=== PATIENT | female | born 1955 | race Caucasian/White ===

== ENCOUNTER → 2016-08-02 18:04 | Outpatient (CLI) | payer MEDICARE ==
[2012-09-23 13:57] VITALS: BMI 30.1
[~2016-08-02 18:04] MED LIST: ACIPHEX20 MG PO; AMBIEN10 MG PO; CARAFATE1 G/10 ML; LIBRAX CAPSULE1 CAP PO; MORPHINE SULFAT30 MG PO; PEPCID20 MG PO; VALIUM5 MG PO; VITAMIN D2000 UNIT PO
== END | disposition home or self-care (01) ==
LOC: D.MAMMO 11:30
DX: Z12.31 Encounter for screening mammogram for malignant neoplasm of breast (principal)

== ENCOUNTER 2016-11-05 06:43 | Day surgery (SDC) | payer MEDICARE ==
[2016-11-04 11:09] LABS: HEMATOCRIT 40.1 % (36.0-48.0); HEMOGLOBIN 13.2 g/dL (12-16); MCH 28.7 pg (26.0-34.0); MCHC 32.9 g/dL (31.0-37.0); MCV 87.2 fL (80.0-100.0); MEAN PLATELET VOLUME 10.6 fL (7.4-10.4); RBC 4.6 10x6/uL (4.00-5.40); RDW 13.1 % (11.5-14.5); WBC 5.4 10x3/uL (4.8-10.8)
[2016-11-04 11:34] LABS: CALC OSMOLALITY 280 mosm/kg (275-300); CALCIUM 8.4 mg/dL (8.5-10.1); CARBON DIOXIDE 29.5 mmol/L (21.0-32.0); CHLORIDE - SERUM 104 mmol/L (98-107); CREATININE - SERUM 0.6 mg/dL (0.6-1.3); GLUCOSE 126 mg/dL (74-106); POTASSIUM - SERUM 4.4 mmol/L (3.5-5.1); SODIUM 141 mmol/L (136-145); UREA NITROGEN 7 mg/dL (7-18); eGFR NON AFRICAN AMERICAN > 90 mL/min (90-120)
[~2016-11-05] VITALS: Ht 165.1 cm; Wt 90.7 kg
--- NOTE | ~2016-11-05 | OP ---
PATIENT NAME: BRANDY ARRIAGA MEDICAL RECORD: [id number] :55 LOCATION:[facility] ADMISSION DATE: SURGEON: MALCOM RODRIGUEZ DO OPERATION DATE: 11/05/16 DATE OF OPERATION: 11/05/2016 PROCEDURE PERFORMED: 1. Left shoulder arthroscopy. 2. Rotator cuff repair. 3. Subacromial decompression. 4. Distal clavicle resection, subacromial decompression was done with acromioplasty. INDICATIONS: Ms. Arriaga is a 60-year-old right hand dominant female that presented to the office with months of left shoulder pain. She had been trying physical therapy and other means of conservative management including injections, which have not worked well for her and she wanted something operatively done. She had an MRI, which showed a partial thickness tear of the rotator cuff tendon as well as bone spur in the subacromial space, this MRI with and without contrast. The SLAP tear was not visible at that time. She also of note did have AC joint pain with cross body adduction. PREOPERATIVE DIAGNOSES: 1. Left shoulder partial thickness rotator cuff tear. 2. Subacromial impingement. 3. Acromioclavicular joint arthritis. POSTOPERATIVE DIAGNOSES: 1. Left shoulder partial thickness rotator cuff tear. 2. Subacromial impingement. 3. Acromioclavicular joint arthritis. 4. Type 2 superior labrum anterior and posterior tear which is a superior labrum anterior to posterior tear. DESCRIPTION OF PROCEDURE: Ms. Arriaga was in the preoperative area where she received a block by anesthesia. Her preoperative antibiotics were started at that time, clindamycin. She was taken to the operative suite, placed in the supine position and given general anesthesia. The patient was then sat up in the beach chair position and secured and all bony prominences were well padded at that time. A timeout was then performed. All parties were in agreement with the correct patient, correct procedure and correct site. The posterior portal at that time was then used to be established with an 18-gauge spinal needle into the joint and 60 cc of saline was injected into the joint and went in very easily and 10 mL of 0.5% Marcaine with epinephrine was injected into the subacromial space. A posterior portal was then established with an 11-blade scalpel and the trocar was attempted to be put into her shoulder without success. The portal was then readjusted approximately 1 cm medial to that and the shoulder joint was successfully entered. Upon entering the shoulder joint, inspection of the rotator cuff revealed a partial thickness tear on the articular side, greater than 50% measuring, about 1.5 cm in distance in the supraspinatus tendon. At that time also, the SLAP tear was noticed at the border of the glenoid with the labrum. Subscapularis was viewed as well and appeared to be intact and the inferior pouch of the joint was viewed well without any loose bodies or any problems. Articular cartilage was intact now OPERATIVE REPORT [id number] BRANDY ARRIAGA without any wear. A time the biceps tendon was tagged with a stitch and using a burner, was taken down at the origin of the glenoid labrum long head of the biceps was. Trocar was then moved into the subacromial space and a subacromial decompression commenced at that time including acromioplasty. Large spur was noted along the acromion and was taken down with a ezra. The AC joint at that time was viewed as well and cleared off and 7 mm was removed including both the clavicle and the acromion opening up the joint 7 mm, leaving the superior and posterior joint capsule intact. Upon finishing that, the attention was then drawn to the rotator cuff tear, was noted to be about 1 cm to 1-1/2cm in length and decided to use a FiberTape and using 2 bites of the FiberTape and then a one lateral anchor to bring it down after the greater tuberosity was prepared and debrided to promote healing of the rotator cuff tear that was done. The FiberTape was used and was brought to the lateral anchor. Lateral anchor was then cut and the scope was taken out of subacromial space. Attention was then drawn to the subpectoralis bicep tenodesis. A 3-cm incision was made near the axilla just inferior to the insertion of the pec tendon on the humerus and careful dissection was made down to the pectoralis tendon on the humerus. The long head of the biceps tendon was identified at that time and removed and a whipstitch was then placed along the long head of the biceps. Once that was done, the sutures were placed into the unicortical button and then a unicortical hole was drilled into the humerus. The button was then placed into the intramedullary canal of the humerus and the button flipped and the sutures were toggled to secure the long head of the biceps tendon to that site. A free needle was then used to run a stitch through the tendon locking everything into place and was tied and then cut. The excess tendon was cut at that time as well. The site was then copiously irrigated with saline and was closed first with 2-0 Vicryl inverted interrupted sutures and then a 4-0 Monocryl was run on the skin. The portal sites were then closed as well with 4-0 Monocryl using interrupted suture. Dermabond was placed over the bicep tenodesis site. Incision and Steri-Strips were placed over the portal sites. Adaptic, 4 x 4s, and Tegaderm were placed over the sites. The patient was placed in a sling, awoken in the operating room in stable condition, taken to PACU for further recovery. Blood loss 50 mL. TRANSINT:[id number] Voice Confirmation ID: [id number] DOCUMENT ID: [id number] MALCOM RODRIGUEZ DO CC: [id number] DICTATION DATE: 11/05/161757 DEVELOPER TRADING SYSTEMS: 11/06/16 0012 [facility] 11/05/16 [facility] [address] [id number]
[~2016-11-05 06:43] MED LIST changes: +ZOFRAN4 MG PO
[2016-11-05 08:37] VITALS: BP 122/75; Ht 165.1 cm; Wt 90.7 kg
[2016-11-05] MEDS ORDERED: KEFLEX500 MG PO (17:46)
[2016-11-05] MEDS ORDERED: PERCOCET 10/3251 TA1 PO (17:46)
[2016-11-05] MEDS ORDERED: HYDROXYZINE HCL50 MG PO (17:47)
--- NOTE | 2016-11-05 20:31 | NUR ---
1905 LEFT SHOULDER ARTHROSCOPY AND REPAIRS. SOME SLEEPY BUT VERBAL. O2 AT 2 L NC. RESP EVEN AND NONLABORED. LEFT SHOULDER SITE WITH 4 DRESSING 2 WITH DRAINAGE NOTED. ARM IN SLING SHOT SLING. FINGERS TINGLING,COLOR PINK. DENIES PAIN OR NAUSEA. FAMILY PRESENT AND TOLERATING ICE CHIPS.
--- NOTE | 2016-11-05 20:38 | NUR ---
1935 UP AND VOIDED V/S STABLE, BACK TO CHAIR NO CHANGES IN DRESSING TO LEFT SHOULDER. DENIES PAIN OR NAUSEA TINGLING FINGERS NAIL BEDS LEFT HAND PINK.
--- NOTE | 2016-11-05 20:41 | NUR ---
194 IV DCD CATHETER INTACT. ASSISTED WITH DRESSING. FAMILY WAS GIVEN 3 SCRIPTS PERCOCET KEFLEX AND VISTARIL AND GOT IT FILLED. DISCHARGE INSTRUCTIONS GONE OVER SHOULDER SHEET BLOCK SHEETAND OTHER INSTRUCTIONS. WENT OVER WITH PATIENT AND FAMILY. VERBALLY UNDERSTANDS.
--- NOTE | 2016-11-05 20:43 | NUR ---
201O TO HOME VIA W/C WITH FAMILY,
== END 2016-11-05 20:10 | disposition home or self-care (01) ==
LOC: D.OPS 06:43 → D.PAN 10:15 → D.OPS 10:15
PROVIDERS: Anesthesiology
DX: M75.112 Incomplete rotator cuff tear or rupture of left shoulder, not specified as traumatic (principal); M75.42 Impingement syndrome of left shoulder; M13.812 Other specified arthritis, left shoulder; S43.432A Superior glenoid labrum lesion of left shoulder, initial encounter; X58.XXXA Exposure to other specified factors, initial encounter; Z01.812 Encounter for preprocedural laboratory examination

== ENCOUNTER 2017-03-29 21:53 | Emergency (ER) | payer MEDICARE ==
[2016-11-05 08:37] VITALS: BMI 33.3
[~2017-03-29 21:53] MED LIST changes: +HYDROXYZINE HCL50 MG PO; +KEFLEX500 MG PO; +PERCOCET 10/3251 TA1 PO
[2017-03-29 23:19] LABS: BASOPHILS 0.1 % (0-2); EOSINOPHILS 1.6 % (0-7); HEMATOCRIT 37.6 % (36.0-48.0); HEMOGLOBIN 12.4 g/dL (12-16); IMMATURE GRANULOCYTES 0.1 % (0-5); LYMPHOCYTES 32.4 % (15-50); MCH 28.2 pg (26.0-34.0); MCV 85.6 fL (80.0-100.0); MEAN PLATELET VOLUME 10.2 fL (7.4-10.4); MONOCYTES 5.5 % (2-11); NEUTROPHILS 60.3 % (40-80); PLATELET COUNT 223 10x3/uL (130-400); RBC 4.39 10x6/uL (4.00-5.40); RDW 12.8 % (11.5-14.5)
[2017-03-29 23:34] LABS: ALBUMIN 3.2 g/dL (3.4-5.0); ALKALINE PHOSPHATASE 80 U/L (46-116); ALT (SGPT) 14 U/L (10-68); BILIRUBIN - TOTAL 0.37 mg/dL (0.2-1.3); CALC OSMOLALITY 280 mosm/kg (275-300); CALCIUM 8.5 mg/dL (8.5-10.1); CARBON DIOXIDE 32.4 mmol/L (21.0-32.0); CHLORIDE - SERUM 104 mmol/L (98-107); CREATININE - SERUM 0.7 mg/dL (0.6-1.3); GLUCOSE 113 mg/dL (74-106); PROTEIN - SERUM 6.7 g/dL (6.4-8.2); SODIUM 141 mmol/L (136-145); UREA NITROGEN 9 mg/dL (7-18); eGFR NON AFRICAN AMERICAN 90 mL/min (90-120)
[2017-03-29 23:36] LABS: APTT 27.9 SECONDS (22.8-39.4); INR 1.01 (0.85-1.17); PROTIME 12.9 SECONDS (11.6-15.0)
[2017-03-29 23:37] LABS: D-DIMER-QUANTITATIVE 0.53 ug/mLFEU (0.20-0.54)
[2017-03-29 23:38] LABS: CREATINE KINASE 45 UL (21-215); LIPASE 71 U/L (73-393)
[2017-03-29 23:39] LABS: TROPONIN-I < 0.017 ng/mL (0.000-0.060)
[2017-03-30 01:45] LABS: APPEARANCE HAZY (CLEAR); BILIRUBIN NEGATIVE (NEGATIVE); COLOR YELLOW (YELLOW); GLUCOSE NEGATIVE (NEGATIVE); KETONE NEGATIVE (NEGATIVE); NITRITE NEGATIVE (NEGATIVE); PROTEIN NEGATIVE (NEGATIVE); SPECIFIC GRAVITY 1.015 (1.005-1.020); UROBILINOGEN NORMAL (NORMAL)
[2017-03-30 01:47] LABS: BACTERIA MODERATE /hpf (NONE SEEN); EPITHELIAL CELLS 0-5 /hpf (0-5); MUCUS <1+ /lpf (NONE SEEN); RED CELLS - URINE 0-5 /hpf (0-5); WHITE CELLS - URINE 0-5 /hpf (0-5)
[2017-03-30 01:50] LABS: UDS - AMPHET NEGATIVE QUAL (NEGATIVE); UDS - BARB NEGATIVE QUAL (NEGATIVE); UDS - BENZO POSITIVE QUAL (NEGATIVE); UDS - COCAINE NEGATIVE QUAL (NEGATIVE); UDS - OPIATE POSITIVE QUAL (NEGATIVE); UDS - PCP NEGATIVE QUAL (NEGATIVE); UDS - THC NEGATIVE QUAL (NEGATIVE)
== END 2017-03-30 02:38 | disposition home or self-care (01) ==
LOC: D.ER 21:53
PROVIDERS: Emergency Medicine
DX: M54.6 Pain in thoracic spine (principal)

== ENCOUNTER 2018-02-15 02:52 | Inpatient (IN) | payer MEDICARE ==
[~2018-02-15] VITALS: Ht 165.1 cm; Wt 88.2 kg
--- NOTE | ~2018-02-15 | MORECARE ---
CASE MANAGEMENT DISCHARGE SUMMARY PATIENT: CRISTO ARRIAGA UNIT: [id number] ADM DATE: 02/15/18 AGE: 62 : 55 SEX: F ROOM/BED: D.2239 AUTHOR: SBAIHA,DOC PHYSICIAN: REFERRING PHYSICIAN: MALCOM GAUTHIER MD DATE OF SERVICE: 02/17/18 Discharge Plan Patient Name: CRISTO ARRIAGA Facility: [facility]:[place] : 1955 Planned Disposition: Home Anticipated Discharge Date: 02/18/18 Discharge Date: 02/17/2018 Expected LOS: 3 Initial Reviewer: [email or web address] Initial Review Date: 02/17/2018 Generated: 02/17/18 6:09 pm Comments DCP- Discharge Planning Updated by [email or web address]: Kristen Farias on 02/17/18 9:[address] Patient Name: CRISTO ARRIAGA Admission Status: ER Accout number: [id number] Admission Date: 02-15-2018 : 1955 Admission Diagnosis:UNSPECIFIED ABDOMINAL PAIN Attending: MALCOM GAUTHIER Current LOS: 2 Anticipated DC Date: 02-18-2018 Planned Disposition: Home Primary Insurance: MEDICARE A & B Discharge Planning Comments: Received order for discharge. Met with patient to discuss discharge planning, she is alone in the room. States she lives with her 2 teenage grandkids. States she is independent with ADL's and IADL's. States she uses a walker for ambulation at times. States she has oxygen and CPAP from [facility], but has not had to use it "in a long time." States she has all the DME she needs and declines need for home health services. She is discharging home today and her DIL (Analilia) is taking her home. No needs identified. CM will continue to follow and assist with discharge planning/needs. Journal Clerk: Kristen Farias DCPIA - Discharge Planning Initial Assessment Updated by [email or web address]: rKisten Farias on 02/17/18 10:55 am * Is the patient Alert and Oriented? Yes * How many steps to enter\\exit or inside your home? 0/0 * PCP [facility] * Pharmacy [facility] on [address] and [facility] * Preadmission Environment Home with Family * ADLs Partial Dependent * Partial ADLs (Assistance needed) Ambulation * Equipment Cane CPAP Oxygen Shower Chair Walker * List name and contact numbers for known caregivers / representatives who currently or will assist patient after discharge: Analilia [place] - DIL - [phone] * Verbal permission to speak to the caregivers and representatives has been obtained from the patient. Yes * Community resources currently utilized None * Please name any agencies selected above. DME for oxygen is [facility] * Additional services required to return to the preadmission environment? No * Can the patient safely return to the preadmission environment? Yes * Has this patient been hospitalized within the prior 30 days at any hospital? No Last DP export: 02/17/18 10:00 a Patient Name: CRISTO ARRIAGA Page 48907 at 1709 All edits/amendments must be made on the electronic document DICTATION DATE: 02/17/181708 TOLL TEST WORKER: LIZY 02/17/181708 RPT#: [id number] DC DATE:02/17/18 STATUS: DIS IN [facility] [address] [place] [address] END OF REPORT
--- NOTE | ~2018-02-15 | MORECARE ---
CASE MANAGEMENT DISCHARGE SUMMARY PATIENT: CRISTO ARRIAGA UNIT: [id number] ADM DATE: 02/15/18 AGE: 62 : 55 SEX: F ROOM/BED: D.2239 AUTHOR: SABIHADOC PHYSICIAN: REFERRING PHYSICIAN: MALCOM GAUTHIER MD DATE OF SERVICE: 02/17/18 Discharge Plan Patient Name: CRISTO ARRIAGA Facility: [facility]:[place] : 1955 Planned Disposition: Home Anticipated Discharge Date: 02/18/18 Discharge Date: Expected LOS: 3 Initial Reviewer: [email or web address] Initial Review Date: 02/17/2018 Generated: 02/17/18 12:00 pm Comments DCP- Discharge Planning Updated by [email or web address]: Kristen Farias on 02/17/18 9:[address] Patient Name: CRISTO ARRIAGA Admission Status: ER Accout number: [id number] Admission Date: 02-15-2018 : 1955 Admission Diagnosis:UNSPECIFIED ABDOMINAL PAIN Attending: MALCOM GAUTHIER Current LOS: 2 Anticipated DC Date: 02-18-2018 Planned Disposition: Home Primary Insurance: MEDICARE A & B Discharge Planning Comments: Received order for discharge. Met with patient to discuss discharge planning, she is alone in the room. States she lives with her 2 teenage grandkids. States she is independent with ADL's and IADL's. States she uses a walker for ambulation at times. States she has oxygen and CPAP from [facility], but has not had to use it "in a long time." States she has all the DME she needs and declines need for home health services. She is discharging home today and her DIL (Analilia) is taking her home. No needs identified. CM will continue to follow and assist with discharge planning/needs. Geospatial Applications Developer: Kristen Farias DCPIA - Discharge Planning Initial Assessment Updated by [email or web address]: Kristen Farias on 02/17/18 10:55 am * Is the patient Alert and Oriented? Yes * How many steps to enter\\exit or inside your home? 0/0 * PCP Anderson * Pharmacy [facility] on [address] and [facility] * Preadmission Environment Home with Family * ADLs Partial Dependent * Partial ADLs (Assistance needed) Ambulation * Equipment Cane CPAP Oxygen Shower Chair Walker * List name and contact numbers for known caregivers / representatives who currently or will assist patient after discharge: Analilia [place] - DIL - [phone] * Verbal permission to speak to the caregivers and representatives has been obtained from the patient. Yes * Community resources currently utilized None * Please name any agencies selected above. DME for oxygen is [facility] * Additional services required to return to the preadmission environment? No * Can the patient safely return to the preadmission environment? Yes * Has this patient been hospitalized within the prior 30 days at any hospital? No Patient Name: CRISTO ARRIAGA Page [id number] at 1100 All edits/amendments must be made on the electronic document DICTATION DATE: 02/17/181058 X RAY DEVELOPER: LIZY 02/17/181058 RPT#: [id number] LA DATE: STATUS: ADM IN [facility] [address] [place] [address] END OF REPORT
[2018-02-15 03:42] LABS: BASOPHILS 0.2 % (0-2); EOSINOPHILS 0.5 % (0-7); HEMATOCRIT 36.5 % (36.0-48.0); HEMOGLOBIN 12.3 g/dL (12-16); IMMATURE GRANULOCYTES 0.3 % (0-5); LYMPHOCYTES 17.6 % (15-50); MCH 28.8 pg (26.0-34.0); MCHC 33.7 g/dL (31.0-37.0); MCV 85.5 fL (80.0-100.0); MONOCYTES 5.1 % (2-11); NEUTROPHILS 76.3 % (40-80); RBC 4.27 10x6/uL (4.00-5.40); RDW 13.3 % (11.5-14.5); WBC 11.3 10x3/uL (4.8-10.8)
[2018-02-15 03:43] LABS: PLATELET COUNT 293 10x3/uL (130-400)
[2018-02-15 03:50] LABS: INR 1.01 (0.85-1.17); PROTIME 12.9 SECONDS (11.6-15.0)
[2018-02-15 03:51] LABS: APTT 27.2 SECONDS (22.8-39.4)
[2018-02-15 03:56] LABS: ALBUMIN 3.5 g/dL (3.4-5.0); ALKALINE PHOSPHATASE 71 U/L (46-116); ALT (SGPT) 19 U/L (10-68); BILIRUBIN - TOTAL 0.37 mg/dL (0.2-1.3); CALC OSMOLALITY 283 mosm/kg (275-300); CALCIUM 8.6 mg/dL (8.5-10.1); CARBON DIOXIDE 30.9 mmol/L (21.0-32.0); CHLORIDE - SERUM 104 mmol/L (98-107); CREATININE - SERUM 0.8 mg/dL (0.6-1.3); GLUCOSE 98 mg/dL (74-106); POTASSIUM - SERUM 4.1 mmol/L (3.5-5.1); SODIUM 143 mmol/L (136-145); UREA NITROGEN 9 mg/dL (7-18); eGFR NON AFRICAN AMERICAN 77 mL/min (90-120)
[2018-02-15 04:07] LABS: CKMB 0.9 U/L (0.0-3.6); CREATINE KINASE 65 UL (21-215); PRO BNP 45 pg/mL (0-125); TROPONIN-I < 0.017 ng/mL (0.000-0.060)
[2018-02-15 07:00] VITALS: BP 114/67
[2018-02-15 11:00] VITALS: BP 108/63
[2018-02-15 13:31] VITALS: BMI 32.1
[2018-02-15 15:00] VITALS: BP 103/70
[2018-02-15 16:00] LABS: APPEARANCE CLEAR (CLEAR); BILIRUBIN NEGATIVE (NEGATIVE); COLOR YELLOW (YELLOW); GLUCOSE NEGATIVE (NEGATIVE); KETONE NEGATIVE (NEGATIVE); NITRITE NEGATIVE (NEGATIVE); PROTEIN NEGATIVE (NEGATIVE); SPECIFIC GRAVITY 1.005 (1.005-1.020); UROBILINOGEN NORMAL (NORMAL)
[2018-02-15 16:05] LABS: BACTERIA FEW /hpf (NONE SEEN); EPITHELIAL CELLS 0-5 /hpf (0-5)
[2018-02-15 16:54] LABS: CKMB 1.1 U/L (0.0-3.6); CREATINE KINASE 59 UL (21-215); PRO BNP 79 pg/mL (0-125)
[2018-02-15 16:55] LABS: TROPONIN-I < 0.017 ng/mL (0.000-0.060)
[2018-02-15 17:19] LABS: AMYLASE - SERUM 64 U/L (25-115); LIPASE 85 U/L (73-393)
[2018-02-15 20:00] VITALS: BP 118/58
[2018-02-15 20:34] VITALS: BP 125/63; Ht 165.1 cm; Wt 88.2 kg
[2018-02-15 22:01] LABS: CKMB 2.4 U/L (0.0-3.6); CREATINE KINASE 74 UL (21-215); TROPONIN-I < 0.017 ng/mL (0.000-0.060)
[2018-02-16 05:00] VITALS: BP 118/67
[2018-02-16 05:01] LABS: BASOPHILS 0.2 % (0-2); EOSINOPHILS 1.3 % (0-7); HEMATOCRIT 34.9 % (36.0-48.0); HEMOGLOBIN 11.5 g/dL (12-16); IMMATURE GRANULOCYTES 0.2 % (0-5); LYMPHOCYTES 46.1 % (15-50); MCH 28.5 pg (26.0-34.0); MCV 86.4 fL (80.0-100.0); MEAN PLATELET VOLUME 10.2 fL (7.4-10.4); MONOCYTES 6.4 % (2-11); NEUTROPHILS 45.8 % (40-80); RBC 4.04 10x6/uL (4.00-5.40); RDW 13.4 % (11.5-14.5)
[2018-02-16 05:13] LABS: PLATELET COUNT 191 10x3/uL (130-400); WBC 5.3 10x3/uL (4.8-10.8)
[2018-02-16 05:35] LABS: ALBUMIN 2.8 g/dL (3.4-5.0); ALKALINE PHOSPHATASE 53 U/L (46-116); BILIRUBIN - TOTAL 0.61 mg/dL (0.2-1.3); CALCIUM 8.4 mg/dL (8.5-10.1); CARBON DIOXIDE 28.3 mmol/L (21.0-32.0); CHLORIDE - SERUM 108 mmol/L (98-107); CREATINE KINASE 69 UL (21-215); CREATININE - SERUM 0.6 mg/dL (0.6-1.3); GLUCOSE 97 mg/dL (74-106); POTASSIUM - SERUM 4.5 mmol/L (3.5-5.1); PROTEIN - SERUM 6.1 g/dL (6.4-8.2); SODIUM 142 mmol/L (136-145); TROPONIN-I < 0.017 ng/mL (0.000-0.060); eGFR NON AFRICAN AMERICAN > 90 mL/min (90-120)
[2018-02-16 05:37] LABS: ALT (SGPT) 12 U/L (10-68); CALC OSMOLALITY 279 mosm/kg (275-300); UREA NITROGEN 5 mg/dL (7-18)
[2018-02-16 09:32] VITALS: BP 111/59
[2018-02-16 12:00] VITALS: BP 106/71
[2018-02-16 16:13] VITALS: BP 112/58
[2018-02-16 21:35] VITALS: BP 104/56
[2018-02-17 05:12] VITALS: BP 120/68
[2018-02-17 06:20] LABS: BASOPHILS 0.2 % (0-2); HEMATOCRIT 35.1 % (36.0-48.0); HEMOGLOBIN 11.5 g/dL (12-16); IMMATURE GRANULOCYTES 0.2 % (0-5); LYMPHOCYTES 46.4 % (15-50); MCHC 32.8 g/dL (31.0-37.0); MCV 85.6 fL (80.0-100.0); MEAN PLATELET VOLUME 10.4 fL (7.4-10.4); MONOCYTES 5.3 % (2-11); NEUTROPHILS 45.9 % (40-80); PLATELET COUNT 217 10x3/uL (130-400); RDW 13.3 % (11.5-14.5); WBC 5.5 10x3/uL (4.8-10.8)
[2018-02-17 06:48] LABS: ALBUMIN 2.9 g/dL (3.4-5.0); ALKALINE PHOSPHATASE 51 U/L (46-116); ALT (SGPT) 16 U/L (10-68); BILIRUBIN - TOTAL 0.39 mg/dL (0.2-1.3); CALC OSMOLALITY 284 mosm/kg (275-300); CALCIUM 8.1 mg/dL (8.5-10.1); CARBON DIOXIDE 31.4 mmol/L (21.0-32.0); CHLORIDE - SERUM 107 mmol/L (98-107); CREATININE - SERUM 0.7 mg/dL (0.6-1.3); GLUCOSE 96 mg/dL (74-106); POTASSIUM - SERUM 3.6 mmol/L (3.5-5.1); SODIUM 144 mmol/L (136-145); UREA NITROGEN 7 mg/dL (7-18); eGFR NON AFRICAN AMERICAN 90 mL/min (90-120)
[2018-02-17 08:29] VITALS: BP 114/62
[2018-02-17] MEDS ORDERED: LEVAQUIN750 MG PO (10:04)
[2018-02-17 12:21] VITALS: BP 118/60
== END 2018-02-17 13:45 | disposition home or self-care (01) | DRG 442 ==
LOC: D.ER 02:52 → D.EDHOLD 06:36 → D.MS 06:36
PROVIDERS: Family Medicine; Internal Medicine Gastroenterology
DX: K76.89 Other specified diseases of liver (principal); J98.11 Atelectasis; J96.10 Chronic respiratory failure, unspecified whether with hypoxia or hypercapnia; R10.9 Unspecified abdominal pain; E03.9 Hypothyroidism, unspecified; J44.9 Chronic obstructive pulmonary disease, unspecified; Z99.81 Dependence on supplemental oxygen; R50.9 Fever, unspecified; J98.6 Disorders of diaphragm

== ENCOUNTER 2018-03-27 12:05 | Day surgery (SDC) | payer MEDICARE ==
[~2018-03-27] VITALS: Ht 165.1 cm; Wt 89.1 kg
--- NOTE | ~2018-03-27 | OP ---
PATIENT NAME: BRANDY ARRIAGA MEDICAL RECORD: [id number] :55 LOCATION:[facility] ADMISSION DATE: SURGEON: ELLEN SHEEHAN DO DATE OF OPERATION: 03/27/2018 PROCEDURE: EGD with biopsies. INDICATION FOR PROCEDURE: Generalized and epigastric abdominal pain, dysphagia, heartburn, and nausea. SCOPE: Olympus video gastroscope. MEDICATIONS: Propofol 150 mg IV per anesthesia. ESTIMATED BLOOD LOSS: Minimal. COMPLICATIONS: None. FINDINGS: Informed consent was given. The patient was made comfortable with the above medication. After reaching an adequate level of sedation by slow IV push, the patient was placed on her left side. The endoscope was then advanced under direct visualization through the mouth to the second and third portions of the duodenum. Once the esophagus was intubated, there was obvious candidal esophagitis present throughout the entire esophagus. At the GE junction, there was evidence of LA class B reflux-induced esophagitis and possible Momin's esophagus, which would be a short segment. Multiple cold forceps biopsies were taken of this area to submit for histopathology. The endoscope was advanced beyond the GE junction into the stomach and retroflexed to view the cardia, where a prior Vlad fundoplication was appreciated. Mucosa of the stomach appeared normal, but multiple random cold forceps biopsies were taken to submit for histopathology and to rule out the presence of H. pylori. There were few benign-appearing fundic gland gastric polyps. One was biopsied to confirm the benign nature. The endoscope was advanced beyond the pylorus into the duodenum. The duodenum appeared normal down to the third portion. The endoscope was then withdrawn from the patient. The patient tolerated the procedure well and there were no complications. IMPRESSION: 1. Candidal esophagitis. 2. LA class B reflux-induced esophagitis and possible Momin's. Biopsies pending. 3. Prior intervention in the form of a Vlad fundoplication. 4. Benign fundic gland gastric polyps. Biopsies pending. PLAN AND RECOMMENDATIONS: 1. Discharge home when recovery parameters are met. 2. Follow up biopsy specimen results. 3. GERD diet and reflux precautions. 4. Multiple small frequent meals for questionable history of gastroparesis. 5. Continue current antacid therapy. 6. We will treat candidal esophagitis with Diflucan 100 mg taken two on day #1 and one on following days, for a total of one week. 7. Follow up in GI clinic as needed. 8. If Momin's esophagus is present, we will repeat an EGD in 2 years' time. OPERATIVE REPORT [id number] BRANDY ARRIAGA TRANSINT:[id number] Voice Confirmation ID: [id number] DOCUMENT ID: [id number] ELLEN SHEEHAN DO at 0835 CC: [id number] DICTATION DATE: 03/27/18 1336 WAREHOUSE ORDER PULLER: 03/27/18 1551 [facility] 03/27/18 [facility] [address] [place] [address]
[~2018-03-27 12:05] MED LIST changes: +LEVAQUIN750 MG PO
[2018-03-27 12:34] LABS: HEMATOCRIT 37.4 % (36.0-48.0); HEMOGLOBIN 12.4 g/dL (12-16); MCH 28.4 pg (26.0-34.0); MCHC 33.2 g/dL (31.0-37.0); MCV 85.6 fL (80.0-100.0); RBC 4.37 10x6/uL (4.00-5.40); RDW 13.2 % (11.5-14.5); WBC 6.4 10x3/uL (4.8-10.8)
[2018-03-27] MEDS ORDERED: OMEPRAZOLE20 M1 PO (12:52)
[2018-03-27 12:57] VITALS: Ht 165.1 cm; Wt 89.1 kg
== END 2018-03-27 14:31 | disposition home or self-care (01) ==
LOC: D.OPS 12:05
PROVIDERS: Anesthesiology
DX: B37.81 Candidal esophagitis (principal); K21.0 Gastro-esophageal reflux disease with esophagitis; K31.7 Polyp of stomach and duodenum; R13.10 Dysphagia, unspecified; Z01.812 Encounter for preprocedural laboratory examination

== ENCOUNTER 2018-05-01 07:20 | Day surgery (SDC) | payer MEDICARE ==
[~2018-05-01] VITALS: Ht 165.1 cm; Wt 88.6 kg
[~2018-05-01 07:20] MED LIST changes: +OMEPRAZOLE20 M1 PO
[2018-05-01 07:45] LABS: HEMATOCRIT 38.2 % (36.0-48.0); HEMOGLOBIN 12.8 g/dL (12-16); MCH 28.6 pg (26.0-34.0); MCHC 33.5 g/dL (31.0-37.0); MCV 85.3 fL (80.0-100.0); RBC 4.48 10x6/uL (4.00-5.40); RDW 12.8 % (11.5-14.5); WBC 5.8 10x3/uL (4.8-10.8)
[2018-05-01 08:34] VITALS: BP 129/66; Ht 165.1 cm; Wt 88.6 kg
--- NOTE | 2018-05-01 10:15 | NUR ---
PT REC'D TO ROOM VIA STRETCHER. AWAKE, ALERT, ORIENTED. DR. SHEEHAN IN TO SPEAK WITH PT RE FINDINGS.
--- NOTE | 2018-05-01 10:39 | NUR ---
TOLERATED FULL LIQ DIET.
--- NOTE | 2018-05-01 10:51 | NUR ---
TOLERATED FULL LIQ DIET. IV D/C'D CATH INTACT.
--- NOTE | 2018-05-01 11:15 | NUR ---
D/C INSTRUCTIONS EXPLAINED TO PT. VOICED UNDERSTANDING. COPIES OF ALL GIVEN.
--- NOTE | 2018-05-01 11:32 | NUR ---
D/C'D HOME VIA W/C TO PRIVATE CAR.
--- NOTE | 2018-05-01 15:47 | OP ---
PATIENT NAME: BRANDY ARRIAGA MEDICAL RECORD: [id number] :55 LOCATION:[facility] ADMISSION DATE: SURGEON: ELLEN SHEEHAN DO DATE OF OPERATION: 05/01/2018 PROCEDURE: Colonoscopy with polypectomy. INDICATION FOR PROCEDURE: Family history of colon cancer in the patient's mother, history of polyps, and generalized abdominal pain. SCOPE: Olympus video pediatric colonoscope. MEDICATIONS: Propofol 700 mg IV per anesthesia. WITHDRAWAL TIME: 27 minutes. ESTIMATED BLOOD LOSS: Minimal. COMPLICATIONS: None. FINDINGS: Informed consent was given. The patient was made comfortable with the above medication. After reaching an adequate level of sedation by slow IV push, the patient was placed on her left side. A digital rectal examination was performed and was normal. The endoscope was then advanced under direct visualization through the rectum to the cecum, confirmed by the presence of the appendiceal orifice and the ileocecal valve. The endoscope was slowly withdrawn and mucosa was carefully examined. The prep quality was poor. There was one polyp visualized on today's examination. It was a benign appearing sessile polyp, located in the sigmoid colon. It measured approximately 5 mm in diameter. It was removed using a hot snare in one piece and completely retrieved. Retroflexion was performed in the rectum with a normal-appearing rectal wall. There were no diverticula visualized on today's examination. The endoscope was withdrawn from the patient. The patient tolerated the procedure well and there were no complications. IMPRESSION: 1. Single benign-appearing sessile polyp, removed from the sigmoid colon as described above. 2. Otherwise normal colonoscopy. PLAN AND RECOMMENDATIONS: 1. Discharge home when recovery parameters are met. 2. Follow up biopsy specimen results. 3. High-fiber diet. 4. Continue current medications. 5. Recall colonoscopy in 3 years based on personal history of polyps and family history of colon cancer. TRANSINT:[id number] Voice Confirmation ID: [id number] DOCUMENT ID: [id number] OPERATIVE REPORT [id number] BRANDY ARRIAGA ELLEN SHEEHAN DO at 1547 CC: [id number] DICTATION DATE: 05/01/18 1013 WASTE SPECIALIST: 05/01/18 1257 [facility] 05/01/18 [place] [address]
== END 2018-05-01 12:21 | disposition home or self-care (01) ==
LOC: D.OPS 07:20
PROVIDERS: Anesthesiology
DX: K63.5 Polyp of colon (principal); Z86.010 Personal history of colon polyps; Z80.0 Family history of malignant neoplasm of digestive organs; Z01.812 Encounter for preprocedural laboratory examination

== ENCOUNTER 2018-11-14 07:27 | Emergency (ER) | payer MEDICARE ==
[~2018-11-14] VITALS: Ht 165.1 cm; Wt 90.0 kg
[2018-11-14 07:33] VITALS: Ht 165.1 cm; Wt 90.0 kg
[2018-11-14] MEDS ORDERED: BUPROPION HCL100 MG PO (07:36)
[2018-11-14] MEDS ORDERED: CHRONULAC30 ML PO (07:36)
[2018-11-14 08:07] LABS: BASOPHILS 0.1 % (0-2); EOSINOPHILS 0.3 % (0-7); HEMATOCRIT 37.5 % (36.0-48.0); HEMOGLOBIN 12.8 g/dL (12-16); IMMATURE GRANULOCYTES 0.2 % (0-5); LYMPHOCYTES 20.7 % (15-50); MCH 28.7 pg (26.0-34.0); MCHC 34.1 g/dL (31.0-37.0); MCV 84.1 fL (80.0-100.0); MEAN PLATELET VOLUME 10.2 fL (7.4-10.4); NEUTROPHILS 74.7 % (40-80); PLATELET COUNT 239 10x3/uL (130-400); RBC 4.46 10x6/uL (4.00-5.40); WBC 10.8 10x3/uL (4.8-10.8)
[2018-11-14 08:26] LABS: CHLORIDE - SERUM 103 mmol/L (98-107); POTASSIUM - SERUM 4.2 mmol/L (3.5-5.1); SODIUM 138 mmol/L (136-145)
[2018-11-14 08:33] LABS: AMYLASE - SERUM 52 U/L (25-115); LIPASE 99 U/L (73-393)
[2018-11-14 08:34] LABS: ALBUMIN 3.5 g/dL (3.4-5.0); ALKALINE PHOSPHATASE 78 U/L (46-116); ALT (SGPT) 24 U/L (10-68); BILIRUBIN - TOTAL 0.56 mg/dL (0.2-1.3); CALC OSMOLALITY 274 mosm/kg (275-300); CALCIUM 8.4 mg/dL (8.5-10.1); CARBON DIOXIDE 30.5 mmol/L (21.0-32.0); CREATININE - SERUM 0.7 mg/dL (0.6-1.3); GLUCOSE 105 mg/dL (74-106); MAGNESIUM - SERUM 2.1 mg/dL (1.8-2.4); UREA NITROGEN 9 mg/dL (7-18); eGFR NON AFRICAN AMERICAN 90 mL/min (90-120)
[2018-11-14 08:47] LABS: APPEARANCE HAZY (CLEAR); BILIRUBIN NEGATIVE (NEGATIVE); COLOR YELLOW (YELLOW); GLUCOSE NEGATIVE (NEGATIVE); KETONE NEGATIVE (NEGATIVE); NITRITE NEGATIVE (NEGATIVE); PROTEIN NEGATIVE (NEGATIVE); SPECIFIC GRAVITY 1.005 (1.005-1.020)
[2018-11-14 08:51] LABS: BACTERIA MANY /hpf (NONE SEEN); EPITHELIAL CELLS 0-5 /hpf (0-5); MUCUS <1+ /lpf (NONE SEEN); WHITE CELLS - URINE 0-5 /hpf (0-5)
[2018-11-14] MEDS ORDERED: LEVAQUIN750 MG PO (10:32)
[2018-11-14 10:50] VITALS: BP 103/64
== END 2018-11-14 10:57 | disposition home or self-care (01) ==
LOC: D.ER 07:27
PROVIDERS: Emergency Medicine
DX: N39.0 Urinary tract infection, site not specified (principal); J18.9 Pneumonia, unspecified organism

== ENCOUNTER 2019-09-12 09:00 | Outpatient (CLI) | payer MEDICARE ==
[2018-11-14 07:33] VITALS: BMI 33.0
[~2019-09-12 09:00] MED LIST changes: +BUPROPION HCL100 MG PO; +CHRONULAC30 ML PO
== END 2019-09-12 10:00 | disposition home or self-care (01) ==
LOC: D.MAMMO 09:00
PROVIDERS: ATTEND Nurse Practitioner Family
DX: N63.22 Unspecified lump in the left breast, upper inner quadrant (principal)